=== PATIENT | male | born 1930 | race Caucasian/White ===

== ENCOUNTER 2017-04-13 20:44 | Inpatient (IN) | END 2017-04-19 15:45 | DRG 641 ==

== ENCOUNTER 2018-07-23 01:43 | Emergency (ER) | payer MEDICARE, OTHER ==
[~2018-07-23] VITALS: Ht 170.2 cm; Wt 59.1 kg
[~2018-07-23 01:43] MED LIST: ALLO300T2 PO; ALP2OP10 BOTH EYES; ASPI1CPM8 PO; DORZ1DRO7 BOTH EYES; ESCI20TA38 PO; FINA5TAB4 PO; LEVO75TA5 PO; MEMA1CAP3 PO; SIMV40TA2 PO; TAMS0.4C2 PO
[2018-07-23] MEDS ORDERED: DIPHTH/TET/ACEL PERTUSS (ADULT) 0.5 ML VIAL IM* ONE (02:00)
[2018-07-23 02:02] VITALS: Ht 170.2 cm; Wt 59.1 kg
--- NOTE | 2018-07-23 03:49 | ERD ---
ER Documentation Chief Complaint Chief Complaint found lying on the floor around 12am, noted with right elbow skin tear. HPI This is an 88-year-old gentleman who presents to the emergency room for evaluation from [facility]. The patient attempted to get out of bed and sat down on the ground at the [facility] facility. The patient has a small abrasion to the right elbow. The patient does take antiplatelet therapy. Patient did not hit his head. No report of syncope or loss of consciousness from the [facility] facility. Patient himself has some dementia but denies any complaints. He denies any chest pain or shortness of breath. Remainder of HPI is somewhat limited. ROS All systems reviewed and are negative except as per history of present illness. Medications Home Meds Reported Medications Dorzolamide-Timolol* (Cosopt*) 2%-0.5% Pres Free Droperette, 1 DROP BOTH EYES BID, DROP 04/13/17 Finasteride* (Finasteride*) 5 Mg Tablet, 5 MG PO DAILY, TAB 04/13/17 Memantine HCl/Donepezil HCl (Namzaric 28 mg-10 mg Capsule) 1 Each Cap.spr.24, 1 EACH PO DAILY 04/13/17 Escitalopram Oxalate* (Escitalopram Oxalate*) 20 Mg Tablet, 20 MG PO DAILY, #30 TAB 04/13/17 Aspirin-Dipyridamole* (Aggrenox*) 25-200 Mg Cpmp.12hr, 1 CAP PO DAILY, CAP 04/13/17 Allopurinol* (Allopurinol*) 300 Mg Tablet, 300 MG PO DAILY, TAB 04/13/17 Tamsulosin Hcl* (Tamsulosin Hcl*) 0.4 Mg Cap.er.24h, 0.4 MG PO DAILY, CAP 04/13/17 Brimonidine Tartrate* (Alphagan*) 0.2%-10 Ml Opht Drops, 1 DROP BOTH EYES BID, BOTTLE 04/13/17 Simvastatin* (Zocor*) 40 Mg Tablet, 40 MG PO QHS, #30 TAB 04/13/17 Levothyroxine Sodium* (Levothyroxine Sodium*) 75 Mcg Tablet, 75 MCG PO BEFORE BREAKFAST, #30 TAB 04/13/17 Allergies Allergies: Coded Allergies: No Known Allergy (Unverified , 04/16/17) PMhx/Soc History of Surgery: No Hx Neurological Disorder: No Hx Respiratory Disorders: No Hx Cardiac Disorders: No Hx Psychiatric Problems: Yes (ALZHEIMER'S, DEPRESSION) Hx Miscellaneous Medical Probl: Yes (See EMR for details. ) FmHx Family History: No diabetes Physical Exam Vitals Vital Signs Date Temp Pulse Resp B/P (MAP) Pulse Ox O2 O2 Flow FiO2 Time Delivery Rate 07/23/18 97.9 58 16 114/60 97 02:02 (78) Physical Exam Airway is intact Bilateral breath sounds Strong distal pulses No obvious deficits General: Well developed, well nourished, no acute distress Head: Normocephalic, atraumatic Eyes: Pupils equally reactive, EOM intact ENT: Moist mucous membranes Neck: Supple, no lymphadenopathy, No midline tenderness, deformities, step-offs to the cervical spine, full active and passive range of motion without midline pain. Respiratory: Lungs clear bilaterally, no distress, no chest wall tenderness, no crepitus Cardiovascular: RRR, no murmurs, rubs, or gallops Abdominal: Soft, non-tender, non-distended, no peritoneal signs, pelvis is stable : Deferred MSK: No edema, no unilateral swelling, 5/5 strength, no midline tenderness deformities or step-offs to the thoracolumbar spine. Right upper extremity with full active passive range of motion. Neurologic: Alert and oriented, moving all extremities, normal speech, no focal weakness, no cerebellar signs Skin: No ecchymoses or bruising to the chest or abdomen. Very small abrasion noted to the right elbow consistent with superficial skin tear Psych: Normal mood Results 24 hrs Current Medications Medications Dose Sig/Brady Start Time Status Last (Trade) Ordered Route PRN Stop Time Admin Dose Reason Admin Diphtheria/ 0.5 ml ONCE ONCE 07/23/18 DC 07/23/18 Tetanus/Acell IM* 02:00 02:32 Pertussis 07/23/18 02:01 (Adacel) Procedures/[facility] EKG, MONITORS, & DIAGNOSTIC IMAGING: CT brain: No acute process per radiologist read MEDICAL DECISION MAKING: The patient's presentation is consistent with likely mechanical transfer fall without significant injury. He is a small abrasion to the right elbow. The patient's history and description is not consistent with syncope. I do not believe laboratory testing and thorough work-up is not necessary. The patient has some dementia and does take antiplatelet therapy. CT of the brain would be reasonable but very low pretest probability for clinically significant traumatic brain injury. ER COURSE: * Localized wound care provided. Tetanus updated. * CT imaging is negative. * Patient is hemodynamically stable and I believe safe for discharge back to assisted living facility. CONSULTATION: None DISPOSITION PLAN: The patient does not have an identifiable emergent medical condition that warrants inpatient hospitalization at this time. The patient is deemed safe for discharge with outpatient follow-up. We discussed follow up with the patient's primary care doctor within 24 to 48 hours as needed. We also discussed return to the emergency room for worsening symptoms or worsening condition. Outpatient referral: None required Discharge Medications: None required Departure Diagnosis: Primary Impression: Skin tear Additional Impression: Fall Encounter type: initial encounter Qualified Codes: W19.XXXA - Unspecified fall, initial encounter Condition: Stable Patient Instructions: Abrasion, Fall, Mechanical Additional Instructions: Call your primary care doctor TOMORROW for an appointment during the next 1 WEEK.Tell the secretary specialist that you were referred from this facility.See the doctor sooner or return here if your condition worsens before your appointment time. KOREY BALLESTEROS MD Jul 23, 2018 03:48
[2018-07-23 04:36] VITALS: BP 134/67; PULSE 59; RESP 16
== END 2018-07-23 05:17 | disposition home or self-care (01) ==
LOC: E/R 01:43
DX: S50.311A Abrasion of right elbow, initial encounter (principal); G30.9 Alzheimer's disease, unspecified; W18.39XA Other fall on same level, initial encounter; Y92.9 Unspecified place or not applicable; Z23 Encounter for immunization; Z79.82 Long term (current) use of aspirin
CPT/HCPCS: 70450; 90471; 90715